=== PATIENT | female | born 1985 | race Hispanic/Latino ===

== ENCOUNTER 2018-08-06 13:12 | Emergency (ER) | payer SELFPAY ==
[2018-08-06 14:38] LABS: #Basophils 0.1 thou/uL (0.0-0.2); #Eosinphils 0.1 thou/uL (0.0-0.7); #Lymphocytes 2.3 thou/uL (1.20-3.40); #Monocytes 0.7 thou/uL (0.11-0.59); #Neutrophils 8.1 thou/uL (1.40-6.50); %Basophils 0.6 % (0.0-1.0); %Eosinophils 0.4 % (0.0-10.0); %Lymphocytes 20.3 % (21.0-51.0); %Monocytes 6.5 % (0.0-10.0); %Neutrophils 72.2 % (42.0-75.0); Hemoglobin 13.7 g/dL (12.0-16.0); Mean Corpuscular HGB CONC 33.9 g/dL (32.0-36.0); Mean Corpuscular Hemoglobin 28.1 pg (27.0-31.0); Mean Corpuscular Volume 82.7 fL (78.0-98.0); Mean Platelet Volume 7.8 fL (7.4-10.4); Platelet Count 360 thou/uL (130-400); RBC Distribution Width 12.1 % (11.5-14.5); Red Blood Cell (RBC) Count 4.88 mill/uL (4.20-5.40); White Blood Cell (WBC) Count 11.2 thou/uL (4.8-10.8)
[2018-08-06] MEDS ORDERED: Morphine 4 MG/ML VIAL ONE (14:54)
[2018-08-06 15:02] LABS: ALT (SGPT) 8 U/L (8-55); AST (SGOT) 10 U/L (5-34); Albumin 4.5 g/dL (3.5-5.0); Alkaline Phosphatase 73 U/L (40-150); Anion Gap 16 mmol/L (10-20); BUN (Urea Nitrogen) 8 mg/dL (7.0-18.7); Bilirubin, Total 2.4 mg/dL (0.2-1.2); Calc. Creatinine Clearance 0 mL/min (70-130); Calcium 9.8 mg/dL (7.8-10.44); Carbon Dioxide 20 mmol/L (22-29); Chloride 102 mmol/L (98-107); Estimated GFR-MDRD Greater than 90; Globulin 3.8 g/dL (2.4-3.5); Glucose 96 mg/dL (70-105); Lipase 55 U/L (8-78); Potassium 3.4 mmol/L (3.5-5.1); Protein, Total 8.3 g/dL (6.0-8.3); Sodium 135 mmol/L (136-145)
[2018-08-06] MEDS ORDERED: Ondansetron PF 4 MG/2 ML Vial ONE (15:05)
--- NOTE | 2018-08-06 17:01 | ULT ---
OB ULTRSOUND 1ST TRIMESTER : Multiple longitudinal and transverse images of the pelvis were obtained using a multihertz curvilinea r transabdominal as well as multihertz endovaginal transducers. Real-time, color flow, and spectral waveform Doppler analysis demonstrates a gestational sac seen with a crown-rump length and yolk sac s een. Cardiac activity is seen measuring 160 b.p.m. [place]-rump length measurements 1.6 cm giving an estimated gestational age of 8 weeks 0 days. Gestati onal sac measures 2.5 cm giving a gestational age of 7 weeks 4 days. Overall, the patient has an est imated gestational age of 7 weeks 6 days with an estimated date of delivery of 03/19/2019. The yolk sac is seen measuring 3.3 mm. Both ovaries visualized with right ovary measuring 1.7 x 2.4 x 2.0 cm and he left ovary 2.5 x 2.7 x 2 .1 cm. Good blood flow is seen in both ovaries. No evidence of ovarian torsion seen. IMPRESSION: Viable intrauterine with cardiac activity confirmed. Both ovaries are visualized with no e vidence of ovarian torsion. No evidence of free pelvic fluid seen. POS: [facility]
[2018-08-06 17:17] LABS: Bilirubin Small (Negative); Blood, Urine Moderate (Negative); Clarity CLEAR (Clear); Glucose, Urine (Dipstick) Negative (Negative); Leukocyte Small (Negative); Nitrite Negative (Negative); Protein, Urine (Dipstick) Trace mg/dL (Neg-Trace); Specific Gravity, Urine 1.029 (1.002-1.036)
[2018-08-06 17:20] LABS: Bacteria/HPF Rare-Few HPF (None Seen); Hyaline Casts/LPF 4-6 HYALINE CAST LPF (0-3 Hyaline); Pathc Cast-AUWi Flag 1.59 (0-2.49)
== END 2018-08-06 18:02 | disposition home or self-care (01) ==
LOC: ERS 13:12
DX: O21.0 Mild hyperemesis gravidarum (principal); O99.281 Endocrine, nutritional and metabolic diseases complicating pregnancy, first trimester; E87.5 Hyperkalemia; O23.41 Unspecified infection of urinary tract in pregnancy, first trimester; Z3A.01 Less than 8 weeks gestation of pregnancy
CPT/HCPCS: 36415; 76856; 80053; 81003; 81015; 83690; 84702; 85025; 87086; 96361; 96374; 96375; J2270; J2405

== ENCOUNTER 2022-02-13 22:22 | Inpatient (IN) | payer SELFPAY ==
[~2022-02-13 22:22] MED LIST: Iopamidol 370 76% 100 ML VIAL ONE
[2022-02-13 22:51] LABS: Bilirubin Negative (Negative); Blood, Urine 3+ (Negative); Clarity Turbid (Clear); Glucose, Urine (Dipstick) Normal (Negative); Ketone, Urine 40 mg/dL (Negative); Leukocyte 500 Leu/uL (Negative); Nitrite Negative (Negative); Protein, Urine (Dipstick) 10 mg/dL (Neg-Trace); Specific Gravity, Urine 1.017 (1.002-1.036); Urobilinogen 3 mg/dL (Less than 2)
[2022-02-13 22:53] LABS: #Eosinphils 0.1 thou/uL (0.0-0.7); #Lymphocytes 1.8 thou/uL (1.20-3.40); #Monocytes 0.9 thou/uL (0.11-0.59); #Neutrophils 16.5 thou/uL (1.40-6.50); %Eosinophils 0.6 % (0.0-10.0); %Lymphocytes 9.2 % (21.0-51.0); %Monocytes 4.8 % (0.0-10.0); %Neutrophils 85.5 % (42.0-75.0); Hemoglobin 13.7 g/dL (12.0-16.0); Mean Corpuscular Volume 85.1 fL (78.0-98.0); Mean Platelet Volume 7.5 fL (7.4-10.4); Platelet Count 297 thou/uL (130-400); RBC Distribution Width 11.8 % (11.5-14.5); Red Blood Cell (RBC) Count 4.72 mill/uL (4.20-5.40); White Blood Cell (WBC) Count 19.3 thou/uL (4.8-10.8)
[2022-02-13 22:58] LABS: Bacteria/HPF 2+ HPF (None Seen); Pregnancy Test - Urine (BHCG) Negative (Negative); Pregu Control Background? CLEAR/WHITE (CLR/WHITE); Pregu Control Bar Appear? YES (CONTROL BAR); Specific Gravity 1.017 (1.002-1.036)
[2022-02-13 23:13] LABS: ALT (SGPT) 35 U/L (8-55); AST (SGOT) 31 U/L (5-34); Albumin 4.2 g/dL (3.5-5.0); Alkaline Phosphatase 182 U/L (40-110); Anion Gap 15 mmol/L (10-20); BUN (Urea Nitrogen) 6 mg/dL (7.0-18.7); Calc. Creatinine Clearance 0 mL/min (70-130); Calcium 9.3 mg/dL (7.8-10.44); Carbon Dioxide 22 mmol/L (22-29); Chloride 103 mmol/L (98-107); Estimated GFR 112; Globulin 4.2 g/dL (2.4-3.5); Glucose 108 mg/dL (70-105); Lipase 14 U/L (8-78); Potassium 3.6 mmol/L (3.5-5.1); Protein, Total 8.4 g/dL (6.0-8.3); Sodium 136 mmol/L (136-145)
[2022-02-13] MEDS ORDERED: Ondansetron PF 4 MG/2 ML Vial ONE ×2 (23:47)
[2022-02-13] MEDS ORDERED: Morphine 4 MG/ML VIAL ONE (23:47)
[2022-02-14] MEDS ORDERED: cefTRIAXone\\ROCEPHIN 2 GM VIAL ONE (00:58)
[2022-02-14] MEDS ORDERED: Morphine 4 MG/ML VIAL ONE (03:55)
[2022-02-14] MEDS ORDERED: metroNIDAZOLE 500 MG/100 ML BAG ONE (03:55)
[2022-02-14] MEDS ORDERED: Ketorolac Tromethamine 30 MG/ML VIAL ONE ×2 (09:33→13:39)
[2022-02-14 10:12] LABS: SARS-CoV-2 NAA Rapid Test Not Detected (NotDetected)
[2022-02-14] MEDS ORDERED: Dextrose 5% in Water 1,000 ML IV PRN (10:35)
[2022-02-14] MEDS ORDERED: Morphine 4 MG/ML VIAL SLOW IVP PRN (10:35)
[2022-02-14] MEDS ORDERED: Promethazine HCl 25 MG/ML VIAL IM PRN ×2 (10:35→15:38)
[2022-02-14] MEDS ORDERED: Ondansetron PF 4 MG/2 ML Vial IVP PRN (10:35)
[2022-02-14] MEDS ORDERED: Dextrose 50% Abboject 50 ML SYRINGE SLOW IVP PRN (10:35)
[2022-02-14] MEDS ORDERED: hydrALAZINE 20 MG/ML VIAL SLOW IVP PRN (10:35)
[2022-02-14] MEDS ORDERED: Piperacillin/Tazobactam 3.375 GM in Sodium Chloride 0.9% 100 ML IVPB SCH ×3 (10:45→16:00)
[2022-02-14] MEDS: Sodium Chloride 0.9% 1,000 ML IV SCH ×2 (11:25→20:26)
[2022-02-14] MEDS ORDERED: fentaNYL Citrate/PF 100 MCG/2 ML SYRINGE ONE (13:05)
[2022-02-14] MEDS ORDERED: Midazolam HCl 2 mg/2 ml Vial ONE (13:05)
[2022-02-14] MEDS ORDERED: Bupivacaine/Epinephrine 0.25% 30 ML VIAL ONE (13:08)
[2022-02-14] MEDS ORDERED: Iopamidol 30 ML ONE (13:08)
[2022-02-14] MEDS ORDERED: Lidocaine 1% PF 5 ML VIAL ONE (13:39)
[2022-02-14] MEDS ORDERED: Rocuronium Bromide 10 MG/ML (10ML VIAL) ONE (13:39)
[2022-02-14] MEDS ORDERED: PROPOFOL 200 MG/20 ML VIAL ONE (13:39)
[2022-02-14] MEDS ORDERED: Glycopyrrolate 0.2 MG/ML 5 ML SYRINGE ONE (13:39)
[2022-02-14] MEDS ORDERED: Dexamethasone 20 MG/5 ML VIAL ONE (13:39)
[2022-02-14] MEDS ORDERED: Ondansetron PF 4 MG/2 ML Vial ONE (13:39)
[2022-02-14] MEDS ORDERED: Ondansetron HCl/PF 4 MG/2 ML Vial IVP PRN (15:38)
[2022-02-14] MEDS ORDERED: traMADol HCl 50 MG TAB PO PRN ×2 (15:38)
[2022-02-14] MEDS ORDERED: Promethazine HCl 25 MG/ML VIAL IVPB PRN (15:38)
[2022-02-14] MEDS ORDERED: HYDROmorphone 2 MG/ML VIAL SLOW IVP PRN (15:38)
[2022-02-14] MEDS ORDERED: Meperidine HCl/PF 25 MG/ML VIAL SLOW IVP PRN ×2 (15:38)
[2022-02-14] MEDS ORDERED: Morphine Sulfate 2 MG/ML SYRINGE SLOW IVP PRN (15:38)
[2022-02-14] MEDS ORDERED: Fentanyl 100 MCG/2 ML VIAL ONE (15:49)
[2022-02-14] MEDS: Acetaminophen 325 MG TAB PO SCH ×2 (16:16→22:02)
[2022-02-14] MEDS: Ketorolac Tromethamine 30 MG/ML VIAL IVP SCH (18:23)
[2022-02-14 18:28] VITALS: BMI 25.8
[2022-02-14] MEDS: Famotidine/PF 20 mg/2ml Vial SLOW IVP SCH (20:05)
[2022-02-15] MEDS: Ketorolac Tromethamine 30 MG/ML VIAL IVP SCH ×2 (00:47→05:07)
[2022-02-15] MEDS: Sodium Chloride 0.9% 1,000 ML IV SCH (04:10)
[2022-02-15] MEDS: Acetaminophen 325 MG TAB PO SCH ×3 (04:11→14:36)
[2022-02-15 05:51] LABS: #Basophils 0.1 thou/uL (0.0-0.2); #Lymphocytes 1.1 thou/uL (1.20-3.40); #Monocytes 0.8 thou/uL (0.11-0.59); #Neutrophils 14.1 thou/uL (1.40-6.50); %Basophils 0.5 % (0.0-1.0); %Eosinophils 0.1 % (0.0-10.0); %Lymphocytes 6.8 % (21.0-51.0); %Neutrophils 87.7 % (42.0-75.0); Hemoglobin 11.5 g/dL (12.0-16.0); Mean Corpuscular HGB CONC 33.5 g/dL (32.0-36.0); Mean Corpuscular Volume 86.6 fL (78.0-98.0); Mean Platelet Volume 7.8 fL (7.4-10.4); Platelet Count 307 thou/uL (130-400); RBC Distribution Width 11.7 % (11.5-14.5); Red Blood Cell (RBC) Count 3.99 mill/uL (4.20-5.40); White Blood Cell (WBC) Count 16.1 thou/uL (4.8-10.8)
[2022-02-15 06:15] LABS: ALT (SGPT) 39 U/L (8-55); AST (SGOT) 38 U/L (5-34); Albumin 3.5 g/dL (3.5-5.0); Alkaline Phosphatase 131 U/L (40-110); Anion Gap 11 mmol/L (10-20); BUN (Urea Nitrogen) 6 mg/dL (7.0-18.7); Bilirubin, Total 0.9 mg/dL (0.2-1.2); Calc. Creatinine Clearance 122 mL/min (70-130); Calcium 8.8 mg/dL (7.8-10.44); Carbon Dioxide 26 mmol/L (22-29); Chloride 106 mmol/L (98-107); Estimated GFR 118; Globulin 3.6 g/dL (2.4-3.5); Glucose 133 mg/dL (70-105); Magnesium 1.9 mg/dL (1.6-2.6); Phosphorus 2.7 mg/dL (2.3-4.7); Potassium 3.8 mmol/L (3.5-5.1); Protein, Total 7.1 g/dL (6.0-8.3); Sodium 139 mmol/L (136-145)
[2022-02-15] MEDS ORDERED: Ibuprofen 200 MG TAB PO SCH ×2 (08:00→14:00)
[2022-02-15] MEDS: Famotidine/PF 20 mg/2ml Vial SLOW IVP SCH (09:33)
[2022-02-15 12:28] VITALS: BP 121/84; TEMP 98.2
== END 2022-02-15 15:11 | disposition home or self-care (01) | DRG 419 ==
LOC: ERS 22:22 → ERHOLD 02-14 03:35 → SURG A 02-14 03:43
PROVIDERS: ADMIT Student in an Organized Health Care Education/Training Program; ATTEND Surgery
PROC: 0FT44ZZ Resection of Gallbladder, Percutaneous Endoscopic Approach (ICD-10-PCS; principal; 2022-02-14)
PROC: BF10YZZ Fluoroscopy of Bile Ducts using Other Contrast (ICD-10-PCS; 2022-02-14)
DX: K80.00 Calculus of gallbladder with acute cholecystitis without obstruction (principal); Z20.822 Contact with and (suspected) exposure to COVID-19
CPT/HCPCS: 36415; 47532; 74177; 76705; 80053; 81003; 81015; 81025; 83605; 83690; 83735; 84100; 85025; 87040; 87086; 88304; 93005; 96361; 96365; 96367; 96375; 96376; C1713; J0696; J1100; J1885; J2250; J2270; J2405; J2543; J2704; J2710; J3010; J3490; J7050; Q9967; S0028; U0002